=== PATIENT | male | born 1980 | race Caucasian/White ===

== ENCOUNTER 2016-11-20 20:30 | Emergency (ER) | payer MEDICAID, OTHER ==
--- NOTE | 2016-11-20 22:01 | ED Physician Documentation ---
PD HPI ABD PAIN - Stated complaint Stated Complaint: ABD/BACK PX - Chief complaint Chief Complaint: Back Pain - History obtained from History obtained from: Patient - History of Present Illness Timing - onset: Other (36-year-old gentleman with a history of narcotic abuse, maintained on Suboxone presents with 2 complaints. Most acutely he has a recurrent pilonidal cyst that started draining tonight and is painful. There is no associated fever with this. Secondly he has long-standing intermittent abdominal pain, he is chronically constipated only stools a few times a week. Occasionally when he does, but not every time, he developed severe lower abdominal pain right before he has a bowel movement. 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 - Past Surgical History Past Surgical History: No - Present Medications Home Medications: Ambulatory Orders Medication Instructions Recorded Confirmed Buprenorphine HCl/Naloxone HCl 4 mg SL DAILY 11/20/16 11/20/16 [Suboxone 4 mg-1 mg Sl Film] Ciprofloxacin HCl [Cipro] 500 mg PO BID #14 tablet 11/20/16 Dicyclomine HCl 20 mg PO QID PRN #20 tablet 11/20/16 Polyethylene Glycol 3350 [Miralax] 17 gm PO DAILY PRN #1 bottle 11/20/16 - Allergies Allergies/Adverse Reactions: Allergies Allergy/AdvReac Type Severity Reaction Status Date / Time Sulfa (Sulfonamide Allergy Unknown Verified 11/20/16 20:39 Antibiotics) - Social History Does the pt smoke?: Yes Smoking Status: Current every day smoker Does the pt drink ETOH?: No Does the pt have substance abuse?: Yes Substance Use and Type: Prescription Pills - Immunizations Immunizations are current?: Yes - POLST Patient has POLST: No PD ED PE NORMAL - Vitals Vital signs reviewed: Yes - General General: Alert and oriented X 3, No acute distress - Abdomen Abdomen: Normal bowel sounds, Soft, Non tender - Derm Derm: Other (Pointed pilonidal cyst with a small amount of spontaneous drainage on the left side of the top of the gluteal crease.) - Neuro Neuro: Alert and oriented X 3, Normal speech - Psych Psych: Normal mood, Normal affect Results - Vitals Vitals: Vital Signs - 24 hr 11/20/16 20:37 Temperature 36.6 C Heart Rate 97 Respiratory 18 Rate Blood Pressure 161/96 H O2 Saturation 100 Oxygen O2 Source Room air Procedures - Abscess I&D (location) pilonidal Preparation: Alcohol, Marcaine 0.5% Incision: Incised with scalpel, Purulent drainage, Loculations broken Other: Pt tolerated well, Dressing applied, Antibiotic prescribed PD MEDICAL DECISION MAKING - ED course ED course: Pilonidal cyst was incised and drained, it is really too small to necessitate packing at this point. He was referred to a surgeon for definitive treatment of this, also because he probably needs a colonoscopy given his symptoms which might point to inflammatory bowel disease. He does not have an acute abdomen, and his abdominal complaints are not acute. Departure - Departure Disposition: 01 Home, Self Care Clinical Impression: Pilonidal cyst with abscess Condition: Good Record reviewed to determine appropriate education?: Yes Instructions: ED Abdominal Pain Unkn Cause, ED Cyst Pilonidal Infected IandD Follow-Up: STAN MILAN MD [Provider Admit Priv/Credential] - Prescriptions: Ciprofloxacin HCl [Cipro] 500 mg PO BID #14 tablet Dicyclomine HCl 20 mg PO QID PRN #20 tablet PRN Reason: Abdominal Cramps Polyethylene Glycol 3350 [Miralax] 17 gm PO DAILY PRN #1 bottle PRN Reason: Constipation Comments: Follow-up with the surgeon again about definitive treatment for your pilonidal cyst. Return if worse. As discussed regarding her chronic abdominal pain and constipation it seems like this may be due to constipation from the Suboxone in which case the MiraLAX may help, but some of your symptoms might point to something more like Crohn's disease or other inflammatory bowel issue. Follow- up with the surgeon as well for evaluation of this, potential colonoscopy given the weight loss, bloody stools, mucopurulent stools. Your blood pressure was elevated today on check into the emergency department. This does not mean that you have hypertension, it is a common phenomenon to come to the emergency department and have elevated blood pressure. I recommend that she see your primary care physician within the week to have it rechecked when you are feeling better.
[2016-11-20] MEDS: CIPROFLOXACIN 250 MG TABLET PO STA (22:06)
[2016-11-20] MEDS ORDERED: CIPROFLOXACIN 250 MG TABLET PO ONE (22:08)
[2016-11-20 22:09] VITALS: BP 150/90
== END 2016-11-20 22:11 | disposition home or self-care (01) ==
LOC: ED 20:30
DX: L05.01 Pilonidal cyst with abscess (principal); G89.29 Other chronic pain; F17.200 Nicotine dependence, unspecified, uncomplicated
CPT/HCPCS: 10060; 99283; A9270

== ENCOUNTER 2017-03-20 15:30 | Emergency (ER) | payer MEDICAID ==
--- NOTE | 2017-03-20 16:04 | ED Physician Documentation ---
PD HPI ABD PAIN - Stated complaint Stated Complaint: DIZZY/VOMITING/AB PX - Chief complaint Chief Complaint: Abd Pain - History obtained from History obtained from: Patient - History of Present Illness Timing - onset: Other (He has been having ongoing intermittent central abdominal pain associated with constipation and some pus on the outside of his stools for the last 3-5 months that is worse if he eats meat or dairy. He was seen by me in November for similar issue and I recommended follow-up with colonoscopy which he Has not done.) Review of Systems Constitutional: reports: Weight Loss (mild). denies: Fever, Chills Cardiac: denies: Chest pain / pressure, Palpitations Respiratory: denies: Dyspnea, Cough GI: reports: Abdominal Pain, Nausea, Vomiting, Constipation. denies: Diarrhea, Hematemesis, Bloody / black stool PD PAST MEDICAL HISTORY - Past Medical History Psych: Other Musculoskeletal: Chronic back pain Other Past Medical History: addiction to pain killers and meth-clean 2 1/2 yrs. - Past Surgical History Past Surgical History: No - Present Medications Home Medications: Ambulatory Orders Medication Instructions Recorded Confirmed Buprenorphine HCl/Naloxone HCl 4 mg SL DAILY 11/20/16 11/20/16 [Suboxone 4 mg-1 mg Sl Film] Ciprofloxacin HCl [Cipro] 500 mg PO BID #14 tablet 11/20/16 Dicyclomine HCl 20 mg PO QID PRN #20 tablet 11/20/16 Polyethylene Glycol 3350 [Miralax] 17 gm PO DAILY PRN #1 bottle 11/20/16 Dicyclomine HCl 20 mg PO QID PRN #20 tablet 03/20/17 - Allergies Allergies/Adverse Reactions: Allergies Allergy/AdvReac Type Severity Reaction Status Date / Time Sulfa (Sulfonamide Allergy Unknown Verified 11/20/16 20:39 Antibiotics) - Social History Does the pt smoke?: Yes Smoking Status: Current every day smoker Does the pt drink ETOH?: No Does the pt have substance abuse?: Yes Substance Use and Type: Meth, Prescription Pills - Immunizations Immunizations are current?: No - POLST Patient has POLST: No PD ED PE NORMAL - Vitals Vital signs reviewed: Yes - General General: Alert and oriented X 3, No acute distress - Cardiac Cardiac: RRR, No murmur - Respiratory Respiratory: No respiratory distress, Clear bilaterally - Abdomen Abdomen: Normal bowel sounds, Soft, Non tender - Neuro Neuro: Alert and oriented X 3, Normal speech Results - Vitals Vitals: Vital Signs - 24 hr 03/20/17 15:39 Temperature 36.8 C Heart Rate 101 H Respiratory 20 Rate Blood Pressure 136/85 H O2 Saturation 98 Oxygen O2 Source Room air PD MEDICAL DECISION MAKING - ED course ED course: He has basically chronic intermittent abdominal pain that is most consistent with IBD or IBS. Given his failure to follow-up after the last visit I recommended an evaluation today including CT scan and labs. He says that this time he plans to follow-up and refused this evaluation really just needs a work note and some medication. Departure - Departure Disposition: Home, Self Care Clinical Impression: Abdominal pain Qualifiers: Abdominal location: generalized Qualified Code(s): R10.84 - Generalized abdominal pain Condition: Good Record reviewed to determine appropriate education?: Yes Instructions: ED Abdominal Pain Unkn Cause Follow-Up: [facility] [Provider Group] Prescriptions: Dicyclomine HCl 20 mg PO QID PRN #20 tablet PRN Reason: Abdominal Cramps Comments: Follow-up with the [facility] to establish primary care, I recommend they refer you to the surgery office for evaluation for likely colonoscopy, plus or minus upper endoscopy. Return if worse or if new symptoms develop. Your blood pressure was elevated today on check into the emergency department. This does not mean that you have hypertension, it is a common phenomenon to come to the emergency department and have elevated blood pressure. I recommend that you see your primary care physician within the week to have it rechecked when you are feeling better. Forms: Activity restrictions
[2017-03-20 16:12] VITALS: BP 130/86
== END 2017-03-20 16:12 | disposition home or self-care (01) ==
LOC: ED 15:30
DX: R10.84 Generalized abdominal pain (principal); F17.200 Nicotine dependence, unspecified, uncomplicated
CPT/HCPCS: 99283

== ENCOUNTER 2018-11-05 09:28 | Emergency (ER) | payer MEDICAID ==
--- NOTE | 2018-11-05 09:56 | XRAY Report ---
Reason: chest pain Procedure Date: 11/05/2018 Accession Number: [id number] / [id number] Procedure: XR - Chest 1 View X-Ray CPT Code: 90202 FULL RESULT: EXAM: CHEST RADIOGRAPHY EXAM DATE: 11/05/2018 09:43 AM. CLINICAL HISTORY: Chest pain. COMPARISON: XR CHEST PA AND LAT 10/21/2006 5:55 PM. TECHNIQUE: 1 view. FINDINGS: Lungs/Pleura: No focal opacities evident. No pleural effusion. No pneumothorax. Mediastinum: Within exam limitations, the cardiomediastinal contour is normal. Other: None. IMPRESSION: No acute cardiopulmonary abnormality. RADIA
[2018-11-05 10:04] LABS: BASOPHILS % (AUTO) 0.6 %; EOSINOPHILS # (AUTO) 0.2 10^3/uL (0.0-0.7); EOSINOPHILS % (AUTO) 2.2 %; HGB - HEMOGLOBIN 15.3 g/dL (14.0-18.0); LYMPHOCYTES # (AUTO) 1.7 10^3/uL (1.5-3.5); LYMPHOCYTES % (AUTO) 24.3 %; MEAN CORPUSCULAR HEMOGLOBIN 30.4 pg (27.0-31.0); MEAN CORPUSCULAR HGB CONC 32.8 g/dL (32.0-36.0); MEAN CORPUSCULAR VOLUME 92.7 fL (80.0-94.0); MEAN PLATELET VOLUME 9.5 fL (7.4-11.4); MONOCYTES # (AUTO) 0.6 10^3/uL (0.0-1.0); MONOCYTES % (AUTO) 9.1 %; NEUTROPHILS # (AUTO) 4.3 10^3/uL (1.5-6.6); NEUTROPHILS % (AUTO) 63.5 %; PLT - PLATELET COUNT 233 10^3/uL (130-450); RED BLOOD COUNT 5.04 10^6/uL (4.70-6.10); RED CELL DISTRIBUTION WIDTH 11.9 % (12.0-15.0); WHITE BLOOD COUNT 6.8 x10^3/uL (4.8-10.8)
[2018-11-05 10:24] LABS: ALBUMIN 4.1 g/dL (3.2-5.5); ALBUMIN/GLOBULIN RATIO 1.1 (1.0-2.2); BILIRUBIN,TOTAL 0.7 mg/dL (0.2-1.0); CALCIUM 9.3 mg/dL (8.5-10.3); CREATININE 0.9 mg/dL (0.6-1.2); TOTAL PROTEIN 7.7 g/dL (6.7-8.2)
[2018-11-05 11:51] VITALS: BP 161/99
--- NOTE | 2018-11-05 12:35 | ED Physician Documentation ---
PD HPI CHEST PAIN - Stated complaint Stated Complaint: CP - Chief complaint Chief Complaint: Cardiac - History obtained from History obtained from: Patient - History of Present Illness Timing - onset: Today (It was not associated with shortness of breath.38-year-old gentleman developed sharp nonradiating right-sided anterior chest pain today on waking up around 9 AM. He has no history of heart problems. He does have a history of smoking and remote drug use, nothing recent. Pain is much better now, not quite gone but almost gone. No recent travel, calf pain, or pedal edema.) Review of Systems Constitutional: denies: Fever, Chills Cardiac: denies: Palpitations, Pedal edema, Calf pain Respiratory: denies: Dyspnea, Cough GI: denies: Abdominal Pain PD PAST MEDICAL HISTORY - Past Medical History Psych: Other Musculoskeletal: Chronic back pain - Past Surgical History Past Surgical History: No - Present Medications Home Medications: Ambulatory Orders Medication Instructions Recorded Confirmed Buprenorphine HCl/Naloxone HCl 4 mg SL DAILY 11/20/16 11/20/16 [Suboxone 4 mg-1 mg Sl Film] Ciprofloxacin HCl [Cipro] 500 mg PO BID #14 tablet 11/20/16 Dicyclomine HCl 20 mg PO QID PRN #20 tablet 11/20/16 Polyethylene Glycol 3350 [Miralax] 17 gm PO DAILY PRN #1 bottle 11/20/16 Dicyclomine HCl 20 mg PO QID PRN #20 tablet 03/20/17 - Allergies Allergies/Adverse Reactions: Allergies Allergy/AdvReac Type Severity Reaction Status Date / Time Sulfa (Sulfonamide Allergy Unknown Verified 11/05/18 09:34 Antibiotics) - Social History Does the pt smoke?: Yes Smoking Status: Current every day smoker Does the pt drink ETOH?: No Does the pt have substance abuse?: Yes - Immunizations Immunizations are current?: No - POLST Patient has POLST: No PD ED PE NORMAL - Vitals Vital signs reviewed: Yes - General General: Alert and oriented X 3, No acute distress - Neck Neck: Supple, no meningeal sign, No bony TTP - Cardiac Cardiac: RRR, No murmur - Respiratory Respiratory: No respiratory distress, Clear bilaterally - Abdomen Abdomen: Non tender - Back Back: No CVA TTP, No spinal TTP - Derm Derm: Normal color, Warm and dry - Extremities Extremities: No edema, No calf tenderness / cord - Neuro Neuro: Alert and oriented X 3, Normal speech - Psych Psych: Normal mood, Normal affect Results - Vitals Vitals: Vital Signs - 24 hr 11/05/18 11/05/18 09:34 11:50 Temperature 36.6 C 36.6 C Heart Rate 99 89 Respiratory 17 17 Rate Blood Pressure 168/87 H 161/99 H O2 Saturation 100 99 Oxygen O2 Source Room air - EKG (time done) 1000 Rate: Rate (enter#) (88) Rhythm: NSR [place]: Normal Intervals: Normal [place] QRS: Normal Ischemia: ST elevation c/w repol. No: ST elevation c/w ischemia, ST depression, T wave inversion Computer interpretation: Agree with computer - Labs Labs: Laboratory Tests 11/05/18 11/05/18 11/05/18 09:50 09:50 09:50 WBC 6.8 RBC 5.04 Hgb 15.3 Hct 46.7 MCV 92.7 MCH 30.4 MCHC 32.8 RDW 11.9 L Plt Count 233 MPV 9.5 Neut # (Auto) 4.3 Lymph # (Auto) 1.7 [place] # (Auto) 0.6 Eos # (Auto) 0.2 Baso # (Auto) 0.0 Absolute Nucleated RBC 0.00 Nucleated RBC % 0.0 Sodium 139 Potassium 4.0 Chloride 103 Carbon Dioxide 29 Anion Gap 7.0 BUN 16 Creatinine 0.9 Estimated GFR (MDRD) 94 Glucose 110 H Calcium 9.3 Total Bilirubin 0.7 AST 24 ALT 22 Alkaline Phosphatase 48 Troponin I High Sens 2.4 Total Protein 7.7 Albumin 4.1 Globulin 3.6 Albumin/Globulin Ratio 1.1 Lipase 31 - Rads (name of study) 1v chest Radiology: EMP read contemporaneously (NAD) PD MEDICAL DECISION MAKING - ED course ED course: PE is considered but given the lack of shortness of breath, resolved chest pain, no risk factors or travel, this is considered exceedingly unlikely. Heart score is 1 and high-sensitivity troponin is negative. Departure - Departure Disposition: 01 Home, Self Care Clinical Impression: Chest pain Qualifiers: Chest pain type: precordial pain Qualified Code(s): R07.2 - Precordial pain Condition: Good Record reviewed to determine appropriate education?: Yes Instructions: ED Chest Pain NonCardiac Comments: Diagnostics today are negative. Return for new or worsening symptoms, follow-up with your doctor, next available appointment. Your blood pressure was elevated today on check into the emergency department. This does not mean that you have hypertension, it is a common phenomenon to come to the emergency department and have elevated blood pressure. I recommend that you see your primary care physician within the week to have it rechecked when you are feeling better.
== END 2018-11-05 12:45 | disposition home or self-care (01) ==
LOC: ED 09:28
DX: R07.2 Precordial pain (principal); R03.0 Elevated blood-pressure reading, without diagnosis of hypertension; F17.200 Nicotine dependence, unspecified, uncomplicated
CPT/HCPCS: 36415; 71045; 80053; 83690; 84484; 85025; 93005; 99283; 99284

== ENCOUNTER 2018-12-22 11:05 | Emergency (ER) | payer MEDICAID ==
--- NOTE | 2018-12-22 12:02 | ED Physician Documentation ---
PD HPI HEENT - Stated complaint Stated Complaint: TOOTH PX - Chief complaint Chief Complaint: Heent - History obtained from History obtained from: Patient - History of Present Illness Timing - onset: How many days ago (2-3) Timing - duration: Days (2-3) Timing - details: Gradual onset, Still present Location: Tooth (He had onset of pain and swelling around the left lower canine tooth that has significant prior dental caries. He has an appoint with [facility] to have the left lower teeth extracted in January. He had had the right lower teeth extracted a few weeks ago. He developed the swelling and pain and some drainage in the last few days. He feels generally ill with some nausea and aches.) Worsens: Swalllowing Associated symptoms: Fever (subjective last night), Facial swelling (localized around the left lower tooth). No: Swollen nodes Recently seen: Other ([facility] few weeks ago with right lower teeth extracted with good healing.) Review of Systems Constitutional: reports: Chills, Myalgias Nose: denies: Congestion Throat: reports: Dental pain / toothache. denies: Sore throat Respiratory: denies: Cough GI: reports: Nausea. denies: Vomiting, Diarrhea Skin: denies: Rash Neurologic: denies: Altered mental status, Headache PD PAST MEDICAL HISTORY - Past Medical History Cardiovascular: Hypertension Psych: Other Musculoskeletal: Chronic back pain - Past Surgical History Past Surgical History: No - Present Medications Home Medications: Ambulatory Orders Medication Instructions Recorded Confirmed Buprenorphine HCl/Naloxone HCl 4 mg SL DAILY 11/20/16 11/20/16 [Suboxone 4 mg-1 mg Sl Film] Ciprofloxacin HCl [Cipro] 500 mg PO BID #14 tablet 11/20/16 Dicyclomine HCl 20 mg PO QID PRN #20 tablet 11/20/16 Polyethylene Glycol 3350 [Miralax] 17 gm PO DAILY PRN #1 bottle 11/20/16 Dicyclomine HCl 20 mg PO QID PRN #20 tablet 03/20/17 Clindamycin HCl [Clindamycin 300MG 300 mg PO TID #21 capsule 12/22/18 CAP] Ibuprofen [Motrin] 600 mg PO TID PRN #30 tab 12/22/18 Ondansetron Odt [Zofran] 4 mg TL Q6H PRN #10 tablet 12/22/18 - Allergies Allergies/Adverse Reactions: Allergies Allergy/AdvReac Type Severity Reaction Status Date / Time Sulfa (Sulfonamide Allergy Unknown Verified 11/05/18 09:34 Antibiotics) - Social History Does the pt smoke?: Yes Smoking Status: Current every day smoker Does the pt drink ETOH?: Yes Does the pt have substance abuse?: Yes - Immunizations Immunizations are current?: No - POLST Patient has POLST: No PD ED PE NORMAL - Vitals Vital signs reviewed: Yes - General General: Alert and oriented X 3, No acute distress, Well developed/nourished - HEENT HEENT: No: Dentition benign (Well-healing gums in the right lower gingiva. The left lower have a few still remaining teeth with significant cavities down to the gum level. The left lower canine tooth has some swelling around the gum without any localized fluctuance. The upper teeth have implants which are nontender.) - Neck Neck: Supple, no meningeal sign, No adenopathy, No JVD - Cardiac Cardiac: RRR, No murmur - Respiratory Respiratory: Clear bilaterally - Abdomen Abdomen: Soft, Non tender - Derm Derm: Normal color, Warm and dry, No rash Results - Vitals Vitals: Vital Signs - 24 hr 12/22/18 12/22/18 11:13 12:39 Temperature 37 C 36.8 C Heart Rate 98 103 H Respiratory 18 18 Rate Blood Pressure 146/81 H 128/84 H O2 Saturation 100 98 Oxygen O2 Source Room air PD MEDICAL DECISION MAKING - ED course Complexity details: considered differential, d/w patient Departure - Departure Disposition: 01 Home, Self Care Clinical Impression: Dental abscess Condition: Stable Record reviewed to determine appropriate education?: Yes Instructions: ED Abscess Dental Prescriptions: Clindamycin HCl [Clindamycin 300MG CAP] 300 mg PO TID #21 capsule Ibuprofen [Motrin] 600 mg PO TID PRN #30 tab PRN Reason: Pain Ondansetron Odt [Zofran] 4 mg TL Q6H PRN #10 tablet PRN Reason: Nausea / Vomiting Comments: Stay well-hydrated. Ondansetron if needed for nausea. Ibuprofen 3 times a day for inflammation and pain. Add Tylenol if needed every 4-6 hours. Clindamycin antibiotic as directed for a week. Follow-up with [facility] dental clinic if not improved well over the next few days. Otherwise follow-up with them as planned for the subsequent tooth extractions. Discharge Date/Time: 12/22/18 12:40
[2018-12-22] MEDS ORDERED: ONDANSETRON ODT 4 MG TABLET TL STA (12:21)
[2018-12-22] MEDS ORDERED: IBUPROFEN 600 MG TABLET PO STA (12:21)
[2018-12-22] MEDS ORDERED: CLINDAMYCIN 150 MG CAPSULE PO STA (12:21)
[2018-12-22 12:40] VITALS: BP 128/84
== END 2018-12-22 12:40 | disposition home or self-care (01) ==
LOC: ED 11:05
DX: K04.7 Periapical abscess without sinus (principal); K02.9 Dental caries, unspecified; Z98.818 Other dental procedure status; I10 Essential (primary) hypertension; F17.200 Nicotine dependence, unspecified, uncomplicated
CPT/HCPCS: 99283; 99284; A9270; Q0162

== ENCOUNTER 2019-01-15 17:49 | Emergency (ER) | payer MEDICAID ==
--- NOTE | 2019-01-15 18:20 | ED Physician Documentation ---
PD HPI ALTERED MENTAL STATUS - Stated complaint Stated Complaint: CONFUSION POST TOOTH EXTRACTION - Chief complaint Chief Complaint: Neuro - History obtained from History obtained from: Patient - History of Present Illness Timing - onset: Today (38-year-old gentleman with history of some drug problems. He is on Suboxone, but interestingly initially when asked him if he still on Suboxone he says now, then subsequently says yes but vacillates on the dose. Anyway 2 days ago he had multiple teeth removed but was recovering well. Today around 4:00 he started to feel "drunk." He was having some trouble getting words out. It just kind of feeling out of body. There is no weakness, numbness, tingling of the extremities or face. No headache. He denies any drug use except for "1 puff" of marijuana at noon.) Review of Systems Constitutional: denies: Fever, Chills Nose: denies: Rhinorrhea / runny nose, Congestion Throat: denies: Sore throat Cardiac: denies: Chest pain / pressure, Palpitations PD PAST MEDICAL HISTORY - Past Medical History Cardiovascular: Hypertension Psych: Other Musculoskeletal: Chronic back pain - Past Surgical History Past Surgical History: No - Present Medications Home Medications: Ambulatory Orders Medication Instructions Recorded Confirmed Buprenorphine HCl/Naloxone HCl 4 mg SL DAILY 11/20/16 11/20/16 [Suboxone 4 mg-1 mg Sl Film] Ciprofloxacin HCl [Cipro] 500 mg PO BID #14 tablet 11/20/16 Dicyclomine HCl 20 mg PO QID PRN #20 tablet 11/20/16 Polyethylene Glycol 3350 [Miralax] 17 gm PO DAILY PRN #1 bottle 11/20/16 Dicyclomine HCl 20 mg PO QID PRN #20 tablet 03/20/17 Clindamycin HCl [Clindamycin 300MG 300 mg PO TID #21 capsule 12/22/18 CAP] Ibuprofen [Motrin] 600 mg PO TID PRN #30 tab 12/22/18 Ondansetron Odt [Zofran] 4 mg TL Q6H PRN #10 tablet 12/22/18 - Allergies Allergies/Adverse Reactions: Allergies Allergy/AdvReac Type Severity Reaction Status Date / Time Sulfa (Sulfonamide Allergy Unknown Verified 01/15/19 18:02 Antibiotics) - Social History Does the pt smoke?: Yes Smoking Status: Current every day smoker Does the pt drink ETOH?: Yes Does the pt have substance abuse?: Yes - Immunizations Immunizations are current?: No - POLST Patient has POLST: No PD ED PE NORMAL - Vitals Vital signs reviewed: Yes - General General: Alert and oriented X 3, No acute distress, Other (Slightly confused gentleman with small pupils but in no distress, he is alert and oriented though. Very slightly slurred speech. Symmetric face.) - HEENT HEENT: EOMI - Neck Neck: Supple, no meningeal sign, No bony TTP - Cardiac Cardiac: RRR, No murmur - Respiratory Respiratory: No respiratory distress, Clear bilaterally - Abdomen Abdomen: Non tender - Back Back: No CVA TTP, No spinal TTP - Derm Derm: Normal color, Warm and dry - Extremities Extremities: No deformity, No tenderness to palpate, No edema, No calf tenderness / cord - Neuro Neuro: Alert and oriented X 3, printing plate setter 2-12 intact, No motor deficit, No sensory deficit, Normal speech, Other (NIH stroke scale equals 0, may be soft 1 for very slightly slurred speech.) Results - Vitals Vitals: Vital Signs - 24 hr 01/15/19 01/15/19 01/15/19 18:02 19:09 19:18 Temperature 36.3 C L Heart Rate 83 Respiratory 18 16 16 Rate Blood Pressure 167/94 H O2 Saturation 97 01/15/19 20:15 Temperature 36.6 C Heart Rate 88 Respiratory 16 Rate Blood Pressure 147/97 H O2 Saturation 100 Oxygen O2 Source Room air - Labs Labs: Laboratory Tests 01/15/19 01/15/19 01/15/19 18:25 18:25 20:05 WBC 9.5 RBC 4.79 Hgb 14.6 Hct 44.3 MCV 92.5 MCH 30.5 MCHC 33.0 RDW 11.8 L Plt Count 226 MPV 9.7 Neut # (Auto) 7.3 H Lymph # (Auto) 1.3 L [place] # (Auto) 0.8 Eos # (Auto) 0.1 Baso # (Auto) 0.0 Absolute Nucleated RBC 0.00 Nucleated RBC % 0.0 Sodium 139 Potassium 4.0 Chloride 103 Carbon Dioxide 28 Anion Gap 8.0 BUN 18 Creatinine 1.0 Estimated GFR (MDRD) 84 L Glucose 116 H Calcium 9.1 Total Bilirubin 0.7 AST 22 ALT 18 Alkaline Phosphatase 60 Total Protein 8.2 Albumin 4.2 Globulin 4.0 Albumin/Globulin Ratio 1.1 Lipase 29 Urine Opiates Screen NEGATIVE Ur Oxycodone Screen NEGATIVE Urine Methadone Screen NEGATIVE Ur Propoxyphene Screen NEGATIVE Ur Barbiturates Screen NEGATIVE Ur Tricyclics Screen NEGATIVE Ur Phencyclidine Scrn NEGATIVE Ur Amphetamine Screen POSITIVE H U Methamphetamines Scrn POSITIVE H U Benzodiazepines Scrn NEGATIVE Urine Cocaine Screen NEGATIVE U Cannabinoids Screen POSITIVE H Ethyl Alcohol < 5.0 PD MEDICAL DECISION MAKING - ED course ED course: 38-year-old gentleman with mild confusion today that is initially inexplicable. He says he has not used methamphetamines in 8 months, the drug screen would suggest otherwise. His slurred speech improved significantly during his evaluation. Departure - Departure Disposition: 01 Home, Self Care Clinical Impression: Altered mental status Qualifiers: Altered mental status type: delirium Qualified Code(s): R41.0 - Disorientation, unspecified Condition: Good Record reviewed to determine appropriate education?: Yes Instructions: ED Confusion, ED Altered Loc Comments: Stay away from drugs and alcohol, all of them. Return for new or worsening symptoms. Do not drink or drive tonight. Your blood pressure was elevated today on check into the emergency department. This does not mean that you have hypertension, it is a common phenomenon to come to the emergency department and have elevated blood pressure. I recommend that you see your primary care physician within the week to have it rechecked when you are feeling better.
[2019-01-15 18:29] LABS: BASOPHILS % (AUTO) 0.3 %; EOSINOPHILS # (AUTO) 0.1 10^3/uL (0.0-0.7); EOSINOPHILS % (AUTO) 0.8 %; HGB - HEMOGLOBIN 14.6 g/dL (14.0-18.0); LYMPHOCYTES # (AUTO) 1.3 10^3/uL (1.5-3.5); LYMPHOCYTES % (AUTO) 13.8 %; MEAN CORPUSCULAR HEMOGLOBIN 30.5 pg (27.0-31.0); MEAN CORPUSCULAR VOLUME 92.5 fL (80.0-94.0); MEAN PLATELET VOLUME 9.7 fL (7.4-11.4); MONOCYTES # (AUTO) 0.8 10^3/uL (0.0-1.0); MONOCYTES % (AUTO) 8.2 %; NEUTROPHILS # (AUTO) 7.3 10^3/uL (1.5-6.6); NEUTROPHILS % (AUTO) 76.7 %; PLT - PLATELET COUNT 226 10^3/uL (130-450); RED BLOOD COUNT 4.79 10^6/uL (4.70-6.10); RED CELL DISTRIBUTION WIDTH 11.8 % (12.0-15.0); WHITE BLOOD COUNT 9.5 x10^3/uL (4.8-10.8)
[2019-01-15 18:46] LABS: ALBUMIN 4.2 g/dL (3.2-5.5); ALBUMIN/GLOBULIN RATIO 1.1 (1.0-2.2); ALKALINE PHOSPHATASE 60 IU/L (42-121); ALT ALANINE AMINOTRANSFERASE 18 IU/L (10-60); AST ASPARTATE AMINOTRANSFERASE 22 IU/L (10-42); BILIRUBIN,TOTAL 0.7 mg/dL (0.2-1.0); BUN - BLOOD UREA NITROGEN 18 mg/dL (6-20); CALCIUM 9.1 mg/dL (8.5-10.3); CARBON DIOXIDE - CO2 28 mmol/L (21-32); CHLORIDE 103 mmol/L (101-111); GFR - MDRD 84 (>89); GLUCOSE 116 mg/dL (70-100); LIPASE 29 U/L (22-51); SODIUM 139 mmol/L (135-145); TOTAL PROTEIN 8.2 g/dL (6.7-8.2)
--- NOTE | 2019-01-15 19:12 | CT Report ---
Reason: altered Procedure Date: 01/15/2019 Accession Number: [id number] / [id number] Procedure: CT - HEAD WO CPT Code: Final Report FULL RESULT: EXAM: CT HEAD EXAM DATE: 01/15/2019 06:34 PM. CLINICAL HISTORY: Altered metal status, confusion. COMPARISON: None. TECHNIQUE: Multiaxial CT images were obtained from the foramen magnum to the vertex. Reformats: Sagittal and coronal. IV contrast: None. In accordance with CT protocol optimization, one or more of the following dose reduction techniques were utilized for this exam: automated exposure control, adjustment of mA and/or KV based on patient size, or use of iterative reconstructive technique. FINDINGS: PARENCHYMA: No acute hemorrhage, transcortical infarction or mass. Normal redmond-white differentiation. EXTRA-AXIAL SPACES: No extra-axial fluid collections. No midline shift. VENTRICLES/SULCI: Normal for patient age. VASCULAR STRUCTURES: The visible vascular structures are unremarkable. SINUSES: The visible paranasal sinuses and mastoid air cells are unremarkable. ORBITS: Unremarkable. BONES: No displaced acute calvarial fracture. OTHER: None. IMPRESSION: No acute intracranial findings. RADIA
[2019-01-15 20:07] LABS: MUDS CUTOFF CONCENTRATIONS CUTOFF CONC BELOW:
[2019-01-15 20:16] VITALS: BP 147/97
[2019-01-15 20:20] LABS: AMPHETAMINE SCREEN,URINE POSITIVE (NEGATIVE); BENZODIAZEPINES SCREEN, URINE NEGATIVE (NEGATIVE); COCAINE SCREEN URINE NEGATIVE (NEGATIVE); METHADONE SCREEN, URINE NEGATIVE (NEGATIVE); METHAMPHETAMINES SCREEN, URINE POSITIVE (NEGATIVE); OPIATE SCREEN, URINE NEGATIVE (NEGATIVE); OXYCODONE SCREEN, URINE NEGATIVE (NEGATIVE); PROPOXYPHENE SCREEN, URINE NEGATIVE (NEGATIVE); TRICYCLIC ANTIDEPRESSANT,URINE NEGATIVE (NEGATIVE)
== END 2019-01-15 21:09 | disposition home or self-care (01) ==
LOC: ED 17:49
DX: R41.0 Disorientation, unspecified (principal); R47.81 Slurred speech; R78.4 Finding of other drugs of addictive potential in blood; Z98.818 Other dental procedure status; I10 Essential (primary) hypertension; F17.200 Nicotine dependence, unspecified, uncomplicated
CPT/HCPCS: 36415; 70450; 80053; 80306; 80320; 83690; 85025; 99283; 99284

== ENCOUNTER 2020-01-13 18:01 | Emergency (ER) | payer MEDICAID ==
[2020-01-13 18:13] VITALS: BP 168/88
--- NOTE | 2020-01-13 18:29 | ED Physician Documentation ---
PD HPI WOUND RECHECK - Stated complaint Stated Complaint: MALE - Chief complaint Chief Complaint: Wound - Histroy obtained from History obtained from: Patient - Additional information Additional information: He has had a new girlfriend for the last few months and she is "rambunctious, over the last couple of days has had a painful rash in the right side of the groin associated with myalgias and fatigue. Review of Systems Constitutional: reports: Myalgias. denies: Fever, Chills PD PAST MEDICAL HISTORY - Past Medical History Cardiovascular: Hypertension Respiratory: None Neuro: None Endocrine/Autoimmune: None GI: None : None HEENT: None Psych: Other Musculoskeletal: Chronic back pain Derm: None - Past Surgical History Past Surgical History: No - Present Medications Home Medications: Ambulatory Orders Medication Instructions Recorded Confirmed Valacyclovir HCl [Valtrex] 1,000 mg PO BID #20 tablet 01/13/20 - Allergies Allergies/Adverse Reactions: Allergies Allergy/AdvReac Type Severity Reaction Status Date / Time Sulfa (Sulfonamide Allergy Unknown Verified 01/13/20 18:13 Antibiotics) - Social History Does the pt smoke?: Yes Smoking Status: Current every day smoker Does the pt drink ETOH?: Yes Does the pt have substance abuse?: Yes Substance Use and Type: Meth, Heroin - Immunizations Immunizations are current?: No - POLST Patient has POLST: No PD ED PE NORMAL - Vitals Vital signs reviewed: Yes - General General: Alert and oriented X 3 - Male Male : Other (Vesicles in the right side of the groin with shoddy adenopathy consistent with genital herpes) - Neuro Neuro: Alert and oriented X 3, Normal speech Results - Vitals Vitals: Vital Signs - 24 hr 01/13/20 18:08 Temperature 36.7 C Heart Rate 97 Respiratory 17 Rate Blood Pressure 168/88 H O2 Saturation 98 Oxygen O2 Source Room air PD MEDICAL DECISION MAKING - ED course ED course: This gentleman has what looks like an initial outbreak of genital herpes, PCR swab was sent and he is started on Valtrex. Departure - Departure Disposition: 01 Home, Self Care Clinical Impression: Genital herpes Qualifiers: Herpes simplex infection site: other site of male genital organs Qualified Code(s): A60.02 - Herpesviral infection of other male genital organs Condition: Good Record reviewed to determine appropriate education?: Yes Instructions: ED Herpes Simplex Virus Type 2 Prescriptions: Valacyclovir HCl [Valtrex] 1,000 mg PO BID #20 tablet Comments: As discussed, the lesions in your groin appear to look like genital herpes. We are running a PCR test to prove. The fastest way to get test results is to go to the hospital website at [email or web address], click on the my [employer] tab and sign up for the patient portal. Also follow-up with your doctor in about a week to discuss results 2.
== END 2020-01-13 18:31 | disposition home or self-care (01) ==
LOC: ED 18:01
DX: A60.02 Herpesviral infection of other male genital organs (principal); I10 Essential (primary) hypertension; F17.200 Nicotine dependence, unspecified, uncomplicated
CPT/HCPCS: 87529; 99282; 99283

== ENCOUNTER 2020-06-24 13:23 | Emergency (ER) | payer MEDICAID ==
[2020-06-24] MEDS ORDERED: SODIUM CHLORIDE 0.9% 1,000 ML IV STA (13:37)
[2020-06-24] MEDS ORDERED: IOPAMIDOL-300 100 ML VIAL ONE (13:41)
--- NOTE | 2020-06-24 13:41 | ED Physician Documentation ---
PD HPI ABD PAIN - Stated complaint Stated Complaint: MALE - Chief complaint Chief Complaint: Abd Pain - History obtained from History obtained from: Patient - Additional information Additional information: 40-year-old gentleman with inhaled methamphetamine and heroin abuse, never injected presents with gross hematuria starting yesterday with clots. He noticed it when just simply urinating and it is painless without dysuria, frequency. He has mild central abdominal discomfort without flank pain. He is never had this before. The day prior to this starting he felt off and had to leave work early. Kind of a nonspecific discoordination syndrome that since resolved. He has a history of HSV-2, hypertension, chronic back pain and the above-mentioned drug abuse. Review of the chart shows previously negative renal functions, he is never had a urinalysis done in our system. He denies getting so high on drugs that he would have passed out to have rhabdomyolysis, nor does he describe recent increase in strenuous exercise. Review of Systems Ten Systems: 10 systems reviewed and negative Constitutional: reports: Fatigue. denies: Fever, Chills Cardiac: denies: Chest pain / pressure, Palpitations Respiratory: denies: Dyspnea, Cough, Wheezing GI: reports: Abdominal Pain. denies: Nausea, Vomiting, Constipation, Diarrhea : reports: Hematuria. denies: Dysuria, Frequency, Hesitancy, Unable to Void, Incontinent, Discharge PD PAST MEDICAL HISTORY - Past Medical History Cardiovascular: Hypertension Respiratory: None Neuro: None Endocrine/Autoimmune: None GI: None : None HEENT: None Psych: Other Musculoskeletal: Chronic back pain Derm: None - Past Surgical History Past Surgical History: No - Present Medications Home Medications: Ambulatory Orders Medication Instructions Recorded Confirmed No Known Home Medications 06/24/20 06/24/20 - Allergies Allergies/Adverse Reactions: Allergies Allergy/AdvReac Type Severity Reaction Status Date / Time Sulfa (Sulfonamide Allergy Unknown Verified 06/24/20 13:26 Antibiotics) - Social History Does the pt smoke?: Yes Smoking Status: Current every day smoker Does the pt drink ETOH?: Yes Does the pt have substance abuse?: Yes - Immunizations Immunizations are current?: No - POLST Patient has POLST: No PD ED PE NORMAL - Vitals Vital signs reviewed: Yes - General General: Alert and oriented X 3, No acute distress - HEENT HEENT: PERRL, EOMI - Neck Neck: Supple, no meningeal sign, No bony TTP - Cardiac Cardiac: RRR, No murmur - Respiratory Respiratory: No respiratory distress, Clear bilaterally - Abdomen Abdomen: Normal bowel sounds, Soft, Non tender - Back Back: No CVA TTP, No spinal TTP - Derm Derm: Normal color, Warm and dry - Extremities Extremities: No edema, No calf tenderness / cord - Neuro Neuro: Alert and oriented X 3, Normal speech Results - Vitals Vitals: Vital Signs - 24 hr 06/24/20 06/24/20 13:26 15:28 Temperature 36.6 C 36.7 C Heart Rate 104 H 87 Respiratory 18 18 Rate Blood Pressure 155/99 H 156/107 H O2 Saturation 100 99 Oxygen O2 Source Room air - Labs Labs: Laboratory Tests 06/24/20 06/24/20 06/24/20 13:35 13:37 13:37 WBC 8.1 RBC 5.09 Hgb 15.9 Hct 47.8 MCV 93.9 MCH 31.2 H MCHC 33.3 RDW 11.9 L Plt Count 212 MPV 9.7 Neut # (Auto) 5.5 Lymph # (Auto) 1.9 [place] # (Auto) 0.7 Eos # (Auto) 0.1 Baso # (Auto) 0.0 Absolute Nucleated RBC 0.00 Nucleated RBC % 0.0 Sodium 139 Potassium 3.9 Chloride 103 Carbon Dioxide 28 Anion Gap 8.0 BUN 15 Creatinine 1.0 Estimated GFR (MDRD) 83 L Glucose 112 H Calcium 9.4 Total Bilirubin 0.9 AST 24 ALT 20 Alkaline Phosphatase 44 Total Creatine Kinase 172 Total Protein 7.8 Albumin 4.6 Globulin 3.2 Albumin/Globulin Ratio 1.4 Urine Color BROWN Urine Clarity CLOUDY Urine pH 6.0 Ur Specific Jerome 1.025 Urine Protein 30 H Urine Glucose (UA) NEGATIVE Urine Ketones NEGATIVE Urine Occult Blood LARGE H Urine Nitrite NEGATIVE Urine Bilirubin NEGATIVE Urine Urobilinogen 0.2 (NORMAL) Ur Leukocyte Esterase NEGATIVE Urine RBC TNTC H Urine WBC 0-3 Ur Squamous Epith Cells RARE Squamous Urine Bacteria Rare Ur Microscopic Review INDICATED Urine Culture Comments NOT INDICATED PD MEDICAL DECISION MAKING - ED course ED course: 40-year-old presents with gross hematuria. No evidence of rhabdomyolysis. No renal mass save a cyst. No obvious bladder mass. Discussed need for follow-up for cystoscopy. Departure - Departure Disposition: 01 Home, Self Care Clinical Impression: Gross hematuria Condition: Good Record reviewed to determine appropriate education?: Yes Instructions: ED Hematuria Comments: Thankfully there is no evidence of serious cause of the blood in your urine. No evidence of rhabdomyolysis, anemia, or kidney mass other than a cyst which is a benign phenomenon. That said you definitely need to follow-up with the urologist, for consideration of cystoscopy, a camera to look in your bladder and make sure there are no bladder masses which can be missed by the CT. The closest urologist is Dr. Geovany Vanessa in [place], the phone number is [phone]. CT Result: No urolithiasis. No evidence of urinary obstruction. Large right renal cysts with simple appearance. Elsewhere, no acute abnormality. Normal appearance of the appendix. Discharge Date/Time: 06/24/20 16:05
[2020-06-24 13:47] LABS: BASOPHILS % (AUTO) 0.5 %; EOSINOPHILS # (AUTO) 0.1 10^3/uL (0.0-0.7); EOSINOPHILS % (AUTO) 1.1 %; HCT - HEMATOCRIT 47.8 % (42.0-52.0); HGB - HEMOGLOBIN 15.9 g/dL (14.0-18.0); LYMPHOCYTES # (AUTO) 1.9 10^3/uL (1.5-3.5); LYMPHOCYTES % (AUTO) 23.1 %; MEAN CORPUSCULAR HEMOGLOBIN 31.2 pg (27.0-31.0); MEAN CORPUSCULAR HGB CONC 33.3 g/dL (32.0-36.0); MEAN CORPUSCULAR VOLUME 93.9 fL (80.0-94.0); MEAN PLATELET VOLUME 9.7 fL (7.4-11.4); MONOCYTES # (AUTO) 0.7 10^3/uL (0.0-1.0); MONOCYTES % (AUTO) 8.1 %; NEUTROPHILS # (AUTO) 5.5 10^3/uL (1.5-6.6); PLT - PLATELET COUNT 212 10^3/uL (130-450); RED BLOOD COUNT 5.09 10^6/uL (4.70-6.10); RED CELL DISTRIBUTION WIDTH 11.9 % (12.0-15.0); WHITE BLOOD COUNT 8.1 x10^3/uL (4.8-10.8)
[2020-06-24 13:56] LABS: BILIRUBIN,URINE NEGATIVE (NEGATIVE); GLUCOSE, URINE (UA) NEGATIVE (NEGATIVE); KETONES,URINE (UA) NEGATIVE (NEGATIVE); LEUKOCYTE ESTERASE, URINE NEGATIVE (NEGATIVE); NITRITE,URINE NEGATIVE (NEGATIVE); OCCULT BLOOD,URINE LARGE (NEGATIVE); PROTEIN,URINE 30 mg/dL (NEGATIVE); UROBILINOGEN,URINE 0.2 (NORMAL) E.U./dL (NORMAL)
[2020-06-24 14:01] LABS: BACTERIA,URINE Rare /HPF (None Seen); CLARITY,URINE CLOUDY (CLEAR); RBC,URINE TNTC /HPF (0-5); SQUAMOUS EPITHELIAL CELL,UR RARE Squamous (<= Few); WBC,URINE 0-3 /HPF (0-3)
[2020-06-24 14:02] LABS: ALBUMIN 4.6 g/dL (3.2-5.5); ALBUMIN/GLOBULIN RATIO 1.4 (1.0-2.2); BILIRUBIN,TOTAL 0.9 mg/dL (0.2-1.0); CALCIUM 9.4 mg/dL (8.5-10.3); POTASSIUM 3.9 mmol/L (3.5-5.0); TOTAL PROTEIN 7.8 g/dL (6.7-8.2)
[2020-06-24] MEDS ORDERED: IOPAMIDOL-300 100 ML VIAL IVP ONE (15:11)
[2020-06-24 15:34] VITALS: BP 156/107
--- NOTE | 2020-06-24 15:45 | CT Report ---
PROCEDURE: IVP INDICATIONS: gross hematuria CONTRAST: IV CONTRAST: Isovue 300 ml: 140 PO CONTRAST: *NO PO CONTRAST TECHNIQUE: Noncontrast 5 mm axial images obtained to the abdomen and pelvis. After the administration of intrave nous contrast, 5 mm thick sections acquired from the diaphragms to the symphysis. 5 mm thick coronal and sagittal reformats were acquired. For radiation dose reduction, the following was used: automa annalee exposure control, adjustment of mA and/or kV according to patient size. COMPARISON: None. FINDINGS: ABDOMEN: Lung bases: Normal Heart:Normal. Liver: Normal. Gallbladder: Normal Bile ducts: Normal. Pancreas: Normal. Spleen: Normal. Adrenals: Normal. Kidneys: Large simple appearing right renal cyst measuring 4.4 x 6.3 cm. No intraluminal filling defe cts seen within the contrast opacified portions of the urinary tract. No nephrolithiasis identified. No hydronephrosis. Stomach: Normal. Bowel: Normal. Appendix is normal. Other: No free fluid or air. Abdominal nodes: Normal. Aorta: Normal. IVC: Normal. Ventral wall: Normal. PELVIS: Bladder: Normal. Pelvic nodes: Normal. Inguinal: No hernia. Bones: No vertebral body compression fracture. No suspicious bone lesion IMPRESSION: No urolithiasis. No evidence of urinary obstruction. Large right renal cysts with simple appearance. Elsewhere, no acute abnormality. Normal appearance of the appendix. Reviewed by: Renzo Blum MD on 06/24/2020 3:43 PM PDT Approved by: Renzo Blum MD on 06/24/2020 3:43 PM PDT Station ID: [id number]
== END 2020-06-24 16:05 | disposition home or self-care (01) ==
LOC: ED 13:23
DX: R31.0 Gross hematuria (principal); R53.83 Other fatigue; N28.1 Cyst of kidney, acquired; I10 Essential (primary) hypertension; M54.9 Dorsalgia, unspecified; G89.29 Other chronic pain; F17.200 Nicotine dependence, unspecified, uncomplicated; F15.10 Other stimulant abuse, uncomplicated; F11.10 Opioid abuse, uncomplicated
CPT/HCPCS: 36415; 74178; 80053; 81001; 82550; 85025; 96360; 99284; Q9967; 81003; 87086

== ENCOUNTER 2020-07-14 14:42 | Emergency (ER) | payer MEDICAID ==
--- OUTSIDE RECORDS SUMMARY | 2020-07-14 14:46 | EXTERNAL MEDICAL SUMMARY RPT | Continuity of Care Document ---
:1980 Demographics Phone Unavailable Preferred Language Unknown Marital Status Unknown Holiness Affiliation Unknown Race Unknown Ethnic Group Unknown Author Organization [facility] Address [address] [phone] Phone Allergies Encounters Medications Problems Results
--- OUTSIDE RECORDS SUMMARY | 2020-07-14 14:57 | EXTERNAL MEDICAL SUMMARY RPT | Continuity of Care Document ---
:1980 Demographics Phone Unavailable Preferred Language Unknown Marital Status Unknown Jew Affiliation Unknown Race Unknown Ethnic Group Unknown Author Organization [facility] Address [address] [phone] Phone Allergies Encounters Medications Problems Results
[2020-07-14 15:04] VITALS: BP 126/79
[2020-07-14] MEDS ORDERED: BUFFERED LIDOCAINE 10 ML SYRINGE SUBQ STA (15:35)
--- NOTE | 2020-07-14 15:37 | ED Physician Documentation ---
History of Present Illness - Stated complaint Stated Complaint: BACK PX - Chief complaint Chief Complaint: General - Additonal information Additional information: 40-year-old male presents emergency department for evaluation of a right superi or buttock abscess and cellulitis that began 3 days ago. He does have a history of previous pilonidal cyst status post drainage but this is in a discretely different area. He has had no fevers. No rectal pain or difficulty with defecation. He is marginally home and staying in a camper. He denies drug alcohol use or intravenous drug use. No history of diabetes. He is unable to sit fully on his buttock secondary to the pain. Review of Systems Constitutional: denies: Fever, Chills Eyes: reports: Reviewed and negative Nose: reports: Reviewed and negative Throat: reports: Reviewed and negative Cardiac: reports: Reviewed and negative Respiratory: reports: Reviewed and negative GI: reports: Reviewed and negative Skin: reports: Lesions (Left buttock abscess with associated cellulitis) Musculoskeletal: reports: Reviewed and negative Neurologic: reports: Reviewed and negative PD PAST MEDICAL HISTORY - Past Medical History Past Medical History: Yes Cardiovascular: Hypertension Respiratory: None Neuro: None Endocrine/Autoimmune: None GI: None : None HEENT: None Psych: Other Musculoskeletal: Chronic back pain Derm: None - Past Surgical History Past Surgical History: No - Present Medications Home Medications: Ambulatory Orders Medication Instructions Recorded Confirmed Clindamycin [Cleocin] 450 mg PO TID 7 Days #63 07/14/20 HYDROcod/ACETAM 5/325 [Kendall 5/325] 1 - 2 tablet PO Q6H PRN #8 tablet 07/14/20 - Allergies Allergies/Adverse Reactions: Allergies Allergy/AdvReac Type Severity Reaction Status Date / Time Sulfa (Sulfonamide Allergy Unknown Verified 07/14/20 15:04 Antibiotics) - Social History Does the pt smoke?: Yes Smoking Status: Current every day smoker Does the pt drink ETOH?: Yes Does the pt have substance abuse?: Yes - Immunizations Immunizations are current?: No - POLST Patient has POLST: No PD ED PE EXPANDED - General General: Alert, In Pain - Cardiac Cardiac: Tachy, Radial strong equal, Cap refill < 2 sec - Respiratory Respiratory: Clear to ausultation earle. No: Distress, Labored - Derm Derm: Abscess (left superior buttock 5X7 area of erythema, induratio and centralized fluctuance. no drainage) Results - Vitals Vitals: Vital Signs - 24 hr 07/14/20 14:59 Temperature 36.4 C L Heart Rate 104 H Respiratory 15 Rate Blood Pressure 126/79 O2 Saturation 98 Oxygen O2 Source Room air Procedures - Abscess I&D (location) right buttock Preparation: Betadine, Lidocaine 1% Incision: Incised with scalpel, Purulent drainage, Loculations broken, Irrigated, Packed Other: Pt tolerated well, Dressing applied, Antibiotic prescribed PD MEDICAL DECISION MAKING - ED course Complexity details: re-evaluated patient, d/w patient ED course: 40-year-old male presents the emergency department for evaluation of 3 days right buttock abscess with associated cellulitis. He has a fairly large 5 cm in greatest dimension area of cellulitis with centralized fluctuance consistent with abscess. Abscess was drained at the bedside and well-tolerated by patient. Moderate amount of purulent fluid drained. No culture was obtained but presumptive MRSA given purulence. Patient does have an allergy to sulfa therefore we will start him on clindamycin. Packing was placed. Advised removal in 24 to 48 hours. I am prescribing a short course of short-acting opioid pain medication for this patient. 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 I have discussed that the opioids are for short term therapy only, and will not be refilled from the ED. Departure - Departure Disposition: 01 Home, Self Care Clinical Impression: Cellulitis and abscess of buttock Condition: Stable Record reviewed to determine appropriate education?: Yes Instructions: Drainage Abscess Prescriptions: Clindamycin [Cleocin] 450 mg PO TID 7 Days #63 HYDROcod/ACETAM 5/325 [Kendall 5/325] 1 - 2 tablet PO Q6H PRN #8 tablet PRN Reason: Pain Comments: David rand had a large abscess with cellulitis in your right buttock. This was opened and drained at the bedside. In 24 to 36 hours I would like you to remove the packing from the abscess. It is okay to shower normally until then. If the packing falls out it is okay to leave it out. I would recommend that you change the gauze 2-3 times a day. It is likely that you will have a moderate amount of blood as well as milky drainage on your gauze. Please fill the prescription for the antibiotics this afternoon and begin taking as directed. I have also prescribed a limited amount of hydrocodone for severe pain only. If despite the antibiotics you are not having improved pain, you have fevers increased redness or worries that the infection is worsening please return to t ER for a second look I am prescribing a short course of narcotic pain medication for you. These are potentially dangerous and addictive medications that should be used carefully. These medications may constipate you. Take an ueuk-xvm-eksnofw stool softener (docusate) twice daily with plenty of water while taking these medications. If you go 24 hours without a bowel movement, take rhml-jqd-domzqge miralax, per package instructions. Do not drink or drive while taking these medications. If you received narcotic or sedating medications while in the emergency department, do not drive for 24 hours. Store this medication in a safe, secure place and out of reach of children. It is a violation of federal law to give or sell this medication to another person or to use in a manner other than prescribed. The ED will not refill narcotic prescriptions, including prescriptions lost or stolen. To dispose of unwanted medications: 1. [facility] [address] in [place] has a medication drop box. They accept prescription medications (in pill form) Saturday through Saturday 9:00 a.m. to 5:00 p.m. 2. [facility] [employer] accepts prescription medications (in pill form only) for disposal year round. Call for more information. 3. Contact the [facility] for the next [facility] sponsored prescription drug collection event. , [phone], or [phone]; Note that many narcotic pain relievers also contain Tylenol/acetaminophen. Please ensure that your total dose of acetaminophen from all sources does not exceed 3 g (3000 mg) per day.
[2020-07-14] MEDS ORDERED: CLINDAMYCIN 150 MG CAPSULE PO STA (15:54)
== END 2020-07-14 16:00 | disposition home or self-care (01) ==
LOC: ED 14:42
DX: L02.31 Cutaneous abscess of buttock (principal); L03.317 Cellulitis of buttock; I10 Essential (primary) hypertension; F17.200 Nicotine dependence, unspecified, uncomplicated
CPT/HCPCS: 10061; 99282; 99283; A9270

== ENCOUNTER 2021-01-24 00:58 | Emergency (ER) | payer MEDICAID ==
[2021-01-24 01:05] VITALS: BP 138/121
--- NOTE | 2021-01-24 01:09 | ED Physician Documentation ---
History of Present Illness - Stated complaint Stated Complaint: L SHOULDER PX - Chief complaint Chief Complaint: Ext Problem - History obtained from History obtained from: Patient - History of Present Illness Timing: How many weeks ago (approximately 3 weeks) Pain level now: 4 Improved by: no ameliorating factors Worsened by: palpation, leaning on left elbow - Additonal information Additional information: c/o approximately 3 weeks of gradual onset, episodic left shoulder and left upp er back pain. denies injury. pain has become more persistent and intense with paresthesias radiating down the length of LUE to hand and all fingers, and the pain has also spread proximally to left trapezial ridge. he has been taking ibuprofen with intermittent relief. he tried using a sling but found this worsened the pain Review of Systems Skin: denies: Rash Musculoskeletal: reports: Joint pain. denies: Neck pain, Joint swelling PD PAST MEDICAL HISTORY - Past Medical History Cardiovascular: Hypertension Respiratory: None Neuro: None Endocrine/Autoimmune: None GI: None : None HEENT: None Psych: Other Musculoskeletal: Chronic back pain Derm: None - Past Surgical History Past Surgical History: No - Allergies Allergies/Adverse Reactions: Allergies Allergy/AdvReac Type Severity Reaction Status Date / Time Sulfa (Sulfonamide Allergy Unknown Verified 01/24/21 01:06 Antibiotics) - Social History Does the pt smoke?: Yes Smoking Status: Current every day smoker Does the pt drink ETOH?: Yes Does the pt have substance abuse?: Yes - Immunizations Immunizations are current?: No - POLST Patient has POLST: No PD ED PE NORMAL - Vitals Vital signs reviewed: Yes - General General: Alert and oriented X 3, No acute distress, Well developed/nourished - Neck Neck: No bony TTP - Derm Derm: No rash - Extremities Extremities: No tenderness to palpate, Normal ROM s pain, No edema - Neuro Neuro: No motor deficit, No sensory deficit Results - Vitals Vitals: Oxygen O2 Source Room air - Rads (name of study) left shoulder xrays Radiology: Prelim report reviewed, See rad report PD MEDICAL DECISION MAKING - ED course Complexity details: reviewed results, re-evaluated patient, considered differential, d/w patient ED course: presents with few weeks of atraumatic left shoulder pain. unremarkable plain film xrays. no abnormalities on exam although ROM is limited due to pain (abduction, internal rotation). differential would include bursitis, tendonitis. no findings to suggest zoster, septic arthritis, pathologic fracture. he has been using ibuprofen with some degree of improvement , declines prescription medication in ED. He had worsening of symptoms when he used a sling. He has been resting as well, and this also has not resulted in improvement. Further emergent testing not indicated at this time. I emphasized the importance of pursuing outpatient follow up for reevaluation and consideration of further testing Departure - Departure Disposition: 01 Home, Self Care Clinical Impression: Shoulder pain, left Condition: Good Instructions: ED Shoulder Pain [facility] Follow-Up: Val Ware MD [Provider Admit Priv/Credential] - Discharge Date/Time: 01/24/21 02:37
--- NOTE | 2021-01-24 01:53 | XRAY Report ---
PROCEDURE: Shoulder 3 View LT INDICATIONS: left shoulder pain, atraumatic TECHNIQUE: 3 views of the shoulder were acquired. COMPARISON: None. FINDINGS: Bones: No fractures or dislocations. No suspicious bony lesions. Visualized ribs appear intact. Soft tissues: No suspicious soft tissue calcifications. IMPRESSION: No osseous lesion. If there are persistent symptoms or continued clinical concern for pathology, then repeat plain film radiographs (7-10 days) or advanced imaging (CT, MR, bone scan) should be consider ed for further evaluation. Reviewed by: Magaly Knutson MD, PhD on 01/24/2021 1:51 AM PST Approved by: Magaly Knutson MD, PhD on 01/24/2021 1:51 AM [facility] Station ID: [id number]
== END 2021-01-24 02:37 | disposition home or self-care (01) ==
LOC: ED 00:58
DX: M25.512 Pain in left shoulder (principal); M54.6 Pain in thoracic spine; R20.2 Paresthesia of skin; I10 Essential (primary) hypertension; F17.200 Nicotine dependence, unspecified, uncomplicated
CPT/HCPCS: 99282; 99283

== ENCOUNTER 2021-01-31 08:00 | Outpatient (CLI) | payer MEDICAID ==
[2021-01-31 23:10] LABS: CHLAMYDIA TRACHOMATIS DNA NEGATIVE (NEGATIVE); NEISSERIA GONORRHOEAE DNA NEGATIVE (NEGATIVE)
== END 2021-01-31 23:59 ==
LOC: LAB.N 08:00
PROVIDERS: ATTEND Family Medicine
DX: R30.0 Dysuria (principal)
CPT/HCPCS: 87491; 87591; 87661

== ENCOUNTER 2021-03-18 23:29 | Emergency (ER) | payer MEDICAID ==
[2021-03-18 23:38] VITALS: BP 138/87
[2021-03-18] MEDS ORDERED: KETOROLAC 30 MG/ML VIAL IM STA (23:51)
--- NOTE | 2021-03-18 23:53 | ED Physician Documentation ---
History of Present Illness - Stated complaint Stated Complaint: BLOOD/PX IN R EAR - Chief complaint Chief Complaint: General - History obtained from History obtained from: Patient - Additonal information Additional information: 40-year-old man with allergy to sulfa presents with right ear pain gradual in onset over the course the day today, worsening when he used a Q-tip in his ear. A while later he noticed he was bleeding from the ear. denies fevers, jaw pain. pain is worse with pulling on the ear and a/w swelling sensation to the pinna. denies swimming or recent water in the ear. +decreased hearing, nausea, vertigo. Review of Systems Ears: reports: Loss of hearing, Ear pain, Drainage/discharge PD PAST MEDICAL HISTORY - Past Medical History Cardiovascular: Hypertension Respiratory: None Neuro: None Endocrine/Autoimmune: None GI: None : None HEENT: None Psych: Other Musculoskeletal: Chronic back pain Derm: None - Past Surgical History Past Surgical History: No - Present Medications Home Medications: Ambulatory Orders Medication Instructions Recorded Confirmed Ciproflox/Dexameth Otic Drops 4 drops OT BID #7.5 ml 03/18/21 [Ciprodex Otic Drops] - Allergies Allergies/Adverse Reactions: Allergies Allergy/AdvReac Type Severity Reaction Status Date / Time Sulfa (Sulfonamide Allergy Unknown Verified 01/24/21 01:06 Antibiotics) - Social History Does the pt smoke?: Yes Smoking Status: Current every day smoker Does the pt drink ETOH?: Yes Does the pt have substance abuse?: Yes - Immunizations Immunizations are current?: No - POLST Patient has POLST: No PD ED PE NORMAL - Vitals Vital signs reviewed: Yes - General General: Alert and oriented X 3, No acute distress, Well developed/nourished - HEENT HEENT: Atraumatic, PERRL, EOMI, Other (R ext auditory canal with abrasion and dried blood. ear is swollen and TM unable to be visualized. ) - Neck Neck: Supple, no meningeal sign Results - Vitals Vitals: Vital Signs - 24 hr 03/18/21 23:33 Temperature 35.7 C L Heart Rate 72 Respiratory 16 Rate Blood Pressure 138/87 H O2 Saturation 100 Oxygen O2 Source Room air PD MEDICAL DECISION MAKING - ED course ED course: 40yM p/w abrasion to R ext auditory canal and significant swelling to the ear. antibiotic drops prescribed and ENT referral given. return precautions given. Departure - Departure Disposition: 01 Home, Self Care Clinical Impression: Ear canal abrasion Condition: Good Instructions: ED Abrasion Follow-Up: Kin Grover DO [Physician No Access] - Prescriptions: Ciproflox/Dexameth Otic Drops [Ciprodex Otic Drops] 4 drops OT BID #7.5 ml Comments: You were seen in the ED for abrasion of your external ear canal. Do not use cutips in your ears anymore. Please follow up with an ear nose and throat doctor. return to the ED for any new or worsening symptoms or other concerns.
== END 2021-03-19 00:17 | disposition home or self-care (01) ==
LOC: ED 23:29
DX: S00.411A Abrasion of right ear, initial encounter (principal); X58.XXXA Exposure to other specified factors, initial encounter
CPT/HCPCS: 96372; 99281; 99283

== ENCOUNTER 2021-09-09 17:05 | Emergency (ER) | payer MEDICAID ==
--- NOTE | 2021-09-09 17:19 | ED Physician Documentation ---
PD HPI ABD PAIN - Stated complaint Stated Complaint: MALE - Chief complaint Chief Complaint: Abd Pain - History obtained from History obtained from: Patient - History of Present Illness Timing - onset: How many hours ago (couple), Today Timing - duration: Hours Timing - details: Abrupt onset, Still present Quality: Aching, Sharp, Pain. No: Cramping Location: LLQ Radiation: Left flank. No: Chest Improved by: Laying still. No: Eating, Meds (he took ibuprofen without improvement. Girlfriend gave him "something for UTI" and says got nauseated and vomited after taking it.) Worsened by: Moving, Palpation. No: Eating Associated symptoms: Nausea, Dysuria, Hematuria. No: Fever, Vomiting, Diarrhea, Hematochezia Similar symptoms before: Has not had sx before Recently seen: Not recently seen Review of Systems Constitutional: denies: Fever, Chills Nose: denies: Rhinorrhea / runny nose, Congestion Throat: denies: Sore throat Cardiac: denies: Chest pain / pressure Respiratory: denies: Cough GI: reports: Abdominal Pain, Nausea. denies: Vomiting, Diarrhea : reports: Frequency, Hematuria Skin: denies: Rash Musculoskeletal: denies: Neck pain, Extremity swelling Neurologic: denies: Near syncope PD PAST MEDICAL HISTORY - Past Medical History Cardiovascular: Hypertension Respiratory: None Neuro: None Endocrine/Autoimmune: None GI: None : None HEENT: None Psych: Other Musculoskeletal: Chronic back pain Derm: None - Past Surgical History Past Surgical History: No - Present Medications Home Medications: Ambulatory Orders Medication Instructions Recorded Confirmed Ciproflox/Dexameth Otic Drops 4 drops OT BID #7.5 ml 03/18/21 [Ciprodex Otic Drops] HYDROcod/ACETAM 5/325 [[place] 5/325] 1 ea PO Q6H PRN #15 tablet 09/09/21 Ondansetron Odt [Zofran] 4 mg TL Q6H PRN #10 tablet 09/09/21 cephALEXin [Keflex] 500 mg PO TID #20 cap 09/09/21 - Allergies Allergies/Adverse Reactions: Allergies Allergy/AdvReac Type Severity Reaction Status Date / Time Sulfa (Sulfonamide Allergy Unknown Verified 09/09/21 17:14 Antibiotics) - Social History Does the pt smoke?: Yes Smoking Status: Current every day smoker Does the pt drink ETOH?: Yes Does the pt have substance abuse?: Yes - Immunizations Immunizations are current?: No - POLST Patient has POLST: No PD ED PE NORMAL - Vitals Vital signs reviewed: Yes - General General: Alert and oriented X 3, Well developed/nourished, Other (appears uncomfortable due to back and abd pain on left. ) - Neck Neck: Supple, no meningeal sign, No adenopathy - Cardiac Cardiac: RRR, No murmur - Respiratory Respiratory: Clear bilaterally - Abdomen Abdomen: Normal bowel sounds, Soft, Non distended, No organomegaly, Other (tender LLQ and left mid abd. No rash nor sores. No dysuria per se but did note blood in urine yesterday.) Results - Vitals Vitals: Oxygen O2 Source Room air - Labs Labs: Microbiology 09/09/21 17:11 Urine Culture - Final Urine,Random No growth Laboratory Tests 09/09/21 09/09/21 09/09/21 17:11 17:27 17:27 WBC 7.6 RBC 4.80 Hgb 14.4 Hct 43.5 MCV 90.6 MCH 30.0 MCHC 33.1 RDW 11.9 L Plt Count 197 MPV 9.6 Neut # (Auto) 5.0 Lymph # (Auto) 1.8 [place] # (Auto) 0.6 Eos # (Auto) 0.1 Baso # (Auto) 0.0 Absolute Nucleated RBC 0.00 Nucleated RBC % 0.0 Sodium 135 Potassium 3.3 L Chloride 101 Carbon Dioxide 28 Anion Gap 6.0 BUN 17 Creatinine 1.0 Estimated GFR (MDRD) 82 L Glucose 105 H Calcium 9.3 Total Bilirubin 0.7 AST 22 ALT 17 Alkaline Phosphatase 49 Total Protein 7.1 Albumin 4.1 Globulin 3.0 Albumin/Globulin Ratio 1.4 Lipase 32 Urine Color ORANGE Urine Clarity CLEAR Urine pH 5.5 Ur Specific [place] 1.025 Urine Protein 30 H Urine Glucose (UA) 100 H Urine Ketones NEGATIVE Urine Occult Blood NEGATIVE Urine Nitrite POSITIVE H Urine Bilirubin NEGATIVE Urine Urobilinogen 4 H Ur Leukocyte Esterase TRACE H Urine RBC 0-5 Urine WBC 4-5 Ur Squamous Epith Cells RARE Squamous Urine Bacteria None Seen Ur Microscopic Review INDICATED Urine Culture Comments INDICATED - Rads (name of study) abd/pelvic CT Radiology: Prelim report reviewed, Final report received (no kidney stones. 6x4 cm cyst in kidney of kidney, which I informed patient a bout. No particular followup.), See rad report PD MEDICAL DECISION MAKING - ED course Complexity details: reviewed results (no kidney stones. 6x4 cm cyst in kidney of kidney, which I informed patient a bout. No particular followup. ), re- evaluated patient, considered differential (consider UTI, kidney stone, diverticulitis, colitis. ), d/w patient Departure - Departure Disposition: Home, Self Care Clinical Impression: Back pain Qualifiers: Back pain location: back pain in unspecified location Chronicity: acute Back pain laterality: bilateral Qualified Code(s): M54.9 - Dorsalgia, unspecified Abdominal pain Qualifiers: Abdominal location: lower abdomen, unspecified Qualified Code(s): R10.30 - Lower abdominal pain, unspecified UTI (urinary tract infection) Qualifiers: Urinary tract infection type: acute pyelonephritis Qualified Code(s): N10 - Acute pyelonephritis Condition: Stable Record reviewed to determine appropriate education?: Yes Instructions: ED UTI Pyelonephritis Male Prescriptions: cephALEXin [Keflex] 500 mg PO TID #20 cap HYDROcod/ACETAM 5/325 [[place] 5/325] 1 ea PO Q6H PRN #15 tablet PRN Reason: Pain Ondansetron Odt [Zofran] 4 mg TL Q6H PRN #10 tablet PRN Reason: Nausea / Vomiting Comments: Stay well-hydrated. Use ondansetron if needed for nausea. Tylenol if needed for pain or add hydrocodone/acetaminophen if needed for worse pain. You do have a urinary tract infection I presume most your pain is from pressure in the kidneys as well as at bladder. These pain should improve as the infection is clearing. Will start with cephalexin antibiotic 3 times daily for a week. This may need to be modified based on the urine culture which should result in a couple of days. We will call you if we need to change antibiotics. I transmitted prescriptions up to [facility] in [place]. Return if not improving well over the next 2 to 3 days and sooner if worse. I am prescribing a short course of narcotic pain medication for you. These are potentially dangerous and addictive medications that should be used carefully. These medications may constipate you. Take an bict-ixt-rldjglz stool softener such as docusate twice daily with plenty of water while taking these medications. If you go 24 hours without a bowel movement, take ygad-gnl-[id number] MiraLAX, per package instructions. Do not drink or drive while taking these medications. If you received narcotic or sedating medications while in the emergency department do not drive for 24 hours. Store this medication in a safe, secure place and out of reach of children. It is a violation of federal law to give or sell this medication to another person or to use in a manner other than prescribed. The ED will not refill narcotic prescriptions, including prescriptions lost or stolen. You can dispose of unwanted medications at the [facility]'s office or at several pharmacies such as [facility]. Discharge Date/Time: 09/09/21 19:30
[2021-09-09 17:24] LABS: GLUCOSE, URINE (UA) 100 mg/dL (NEGATIVE); KETONES,URINE (UA) NEGATIVE (NEGATIVE); LEUKOCYTE ESTERASE, URINE TRACE (NEGATIVE); NITRITE,URINE POSITIVE (NEGATIVE); OCCULT BLOOD,URINE NEGATIVE (NEGATIVE); PH,URINE 5.5 PH (5.0-7.5); PROTEIN,URINE 30 mg/dL (NEGATIVE); UROBILINOGEN,URINE 4 E.U./dL (NORMAL)
[2021-09-09 17:36] LABS: BILIRUBIN,URINE NEGATIVE (NEGATIVE); CLARITY,URINE CLEAR (CLEAR); ICTOTEST,URINE NEGATIVE
[2021-09-09 17:37] LABS: BACTERIA,URINE None Seen /HPF (None Seen); RBC,URINE 0-5 /HPF (0-5); SQUAMOUS EPITHELIAL CELL,UR RARE Squamous (<= Few)
[2021-09-09] MEDS ORDERED: SODIUM CHLORIDE 0.9% 1,000 ML IV STA (17:37)
[2021-09-09] MEDS ORDERED: ONDANSETRON 4 MG/2 ML VIAL IVP STA (17:37)
[2021-09-09] MEDS ORDERED: HYDROmorphone 1 MG/ML CARPUJECT IVP STA ×2 (17:37→18:25)
[2021-09-09] MEDS ORDERED: cefTRIAXone 1 GM VIAL IVP STA (17:37)
[2021-09-09] MEDS ORDERED: KETOROLAC 15 MG/ML VIAL IVP STA (17:37)
[2021-09-09 17:41] LABS: BASOPHILS % (AUTO) 0.5 %; EOSINOPHILS # (AUTO) 0.1 10^3/uL (0.0-0.7); EOSINOPHILS % (AUTO) 1.8 %; HCT - HEMATOCRIT 43.5 % (42.0-52.0); HGB - HEMOGLOBIN 14.4 g/dL (14.0-18.0); LYMPHOCYTES # (AUTO) 1.8 10^3/uL (1.5-3.5); LYMPHOCYTES % (AUTO) 23.3 %; MEAN CORPUSCULAR HGB CONC 33.1 g/dL (32.0-36.0); MEAN CORPUSCULAR VOLUME 90.6 fL (80.0-94.0); MEAN PLATELET VOLUME 9.6 fL (7.4-11.4); MONOCYTES # (AUTO) 0.6 10^3/uL (0.0-1.0); MONOCYTES % (AUTO) 8.2 %; NEUTROPHILS % (AUTO) 65.9 %; PLT - PLATELET COUNT 197 10^3/uL (130-450); RED CELL DISTRIBUTION WIDTH 11.9 % (12.0-15.0); WHITE BLOOD COUNT 7.6 x10^3/uL (4.8-10.8)
[2021-09-09 18:00] LABS: ALBUMIN 4.1 g/dL (3.2-5.5); ALBUMIN/GLOBULIN RATIO 1.4 (1.0-2.2); BILIRUBIN,TOTAL 0.7 mg/dL (0.2-1.0); CALCIUM 9.3 mg/dL (8.5-10.3); POTASSIUM 3.3 mmol/L (3.5-5.0); TOTAL PROTEIN 7.1 g/dL (6.7-8.2)
--- NOTE | 2021-09-09 18:09 | CT Report ---
PROCEDURE: Abdomen/Pelvis WO INDICATIONS: left flank and abd pain for 3 days TECHNIQUE: Noncontrast 5 mm thick sections acquired from the diaphragms to the symphysis. 5 mm coronal and sagi ttal reformats were then performed. For radiation dose reduction, the following was used: automated exposure control, adjustment of mA and/or kV according to patient size. COMPARISON: None. FINDINGS: Image quality: Excellent. ABDOMEN: Lung bases: Basal atelectasis. Heart size is normal. Solid organs: Liver and spleen are normal in size. Gallbladder unremarkable Pancreas is normal in contours. No adrenal nodules. Kidneys are normal in size, without hydronephrosis or nephrolithiasis . Large right renal cyst is present measuring 6 x 4.4 cm. No obstructing calculi. Peritoneum and bowel: Unenhanced bowel loops demonstrate normal wall thickness and caliber. No free fluid or air. Small hiatal hernia. Nodes and vessels: No retroperitoneal or mesenteric adenopathy by size criteria. Aorta and inferior vena cava are normal in caliber. Miscellaneous: Small ventral hernia at the umbilicus. PELVIS: Genitourinary: Bladder is underdistended, limiting evaluation. Miscellaneous: No inguinal hernias or adenopathy. Bones: No suspicious bony lesions. No vertebral body compression fractures. IMPRESSION: No hydronephrosis or renal calculi. No acute abdominopelvic pathology. Additional incidental findings above. Reviewed by: Brandon Pennington MD on 09/09/2021 6:08 PM PDT Approved by: Brandon Pennington MD on 09/09/2021 6:08 PM PDT Station ID: [id number]
[2021-09-09] MEDS ORDERED: ONDANSETRON ODT 4 MG Prepack 2 TL PRN (18:25)
[2021-09-09] MEDS ORDERED: HYDROcod/ACET 5/325 Prepack 4 PO STA (18:25)
[2021-09-09 19:37] VITALS: BP 150/80
== END 2021-09-09 19:30 | disposition home or self-care (01) ==
LOC: ED 17:05
DX: M54.9 Dorsalgia, unspecified (principal); R10.30 Lower abdominal pain, unspecified; N10 Acute pyelonephritis; N28.1 Cyst of kidney, acquired
CPT/HCPCS: 36415; 74176; 80053; 81001; 83690; 85025; 87086; 96374; 96375; 99283; 99285; J1170; 81003

== ENCOUNTER 2021-12-05 20:46 | Emergency (ER) | payer MEDICAID ==
[2021-12-05] MEDS ORDERED: CHERRY SYRUP 10 ML UDC PO ONE (21:38)
[2021-12-05] MEDS ORDERED: CLINDAMYCIN 150 MG CAPSULE PO STA (21:38)
[2021-12-05] MEDS ORDERED: HYDROcod/ACET 5/325 Prepack 4 PO STA (21:38)
[2021-12-05] MEDS ORDERED: DEXAMETHASONE 10 MG/ML VIAL PO STA (21:38)
--- NOTE | 2021-12-05 21:43 | ED Physician Documentation ---
PD HPI WOUND RECHECK - Stated complaint Stated Complaint: COUGHING UP BLOOD/ABD PX - Chief complaint Chief Complaint: Wound - Histroy obtained from History obtained from: Patient - Additional information Additional information: 41-year-old gentleman presents with about 4 days of sore throat and had a panic attack tonight with coughing and some sputum with blood-tinged to it. He also has some lesions on the abdominal wall. That are painful. Review of Systems Constitutional: denies: Fever, Chills Cardiac: denies: Chest pain / pressure, Palpitations Respiratory: reports: Dyspnea, Cough PD PAST MEDICAL HISTORY - Past Medical History Past Medical History: Yes Cardiovascular: Hypertension Respiratory: None Neuro: None Endocrine/Autoimmune: None GI: Crohn's disease : None HEENT: None Psych: Other Musculoskeletal: Chronic back pain Derm: None - Past Surgical History Past Surgical History: No - Present Medications Home Medications: Ambulatory Orders Medication Instructions Recorded Confirmed Acyclovir 200 mg PO DAILY 12/05/21 12/05/21 Acyclovir 400 mg PO TID PRN #60 tablet 12/05/21 Chlorhexidine Gluconate [Hibiclens] 10 ml TP DAILY #236 ml 12/05/21 HYDROcod/ACETAM 5/325 [[place] 5/325] 1 - 2 tab PO Q6H PRN #10 tablet 12/05/21 clindamycin HCL [Cleocin HCl] 300 mg PO QID #28 cap 12/05/21 - Allergies Allergies/Adverse Reactions: Allergies Allergy/AdvReac Type Severity Reaction Status Date / Time Sulfa (Sulfonamide Allergy Unknown Verified 12/05/21 20:50 Antibiotics) - Social History Does the pt smoke?: Yes Smoking Status: Current every day smoker Does the pt drink ETOH?: Yes Does the pt have substance abuse?: Yes - Immunizations Immunizations are current?: No - POLST Patient has POLST: No PD ED PE NORMAL - Vitals Vital signs reviewed: Yes - General General: Alert and oriented X 3, No acute distress - HEENT HEENT: PERRL, EOMI, Other (Very swollen tonsils without exudates) - Neck Neck: Supple, no meningeal sign, No bony TTP - Cardiac Cardiac: RRR, No murmur - Respiratory Respiratory: No respiratory distress, Clear bilaterally - Abdomen Abdomen: Non tender - Derm Derm: Other (There are some lesions on the left abdominal wall consistent with staph infection with mild surrounding cellulitis and 1 is sent for culture.) - Neuro Neuro: Alert and oriented X 3, Normal speech Results - Vitals Vitals: Vital Signs - 24 hr 12/05/21 20:50 Temperature 36.5 C Heart Rate 100 Respiratory 16 Rate Blood Pressure 168/90 H O2 Saturation 100 Oxygen O2 Source Room air PD MEDICAL DECISION MAKING - ED course ED course: 41-year-old gentleman with swollen tonsils and also a skin infection. COVID testing offered and declined. He also wants a refill of his acyclovir. Departure - Departure Disposition: Home, Self Care Clinical Impression: Staph skin infection Condition: Good Record reviewed to determine appropriate education?: Yes Instructions: ED Staph Infec Abx Tx Only Prescriptions: Acyclovir 400 mg PO TID PRN #60 tablet PRN Reason: hsv infection clindamycin HCL [Cleocin HCl] 300 mg PO QID #28 cap Chlorhexidine Gluconate [Hibiclens] 10 ml TP DAILY #236 ml HYDROcod/ACETAM 5/325 [[place] 5/325] 1 - 2 tab PO Q6H PRN #10 tablet PRN Reason: Pain Comments: I sent your prescriptions electronically to [facility] in [place]. We are performing a wound culture, the results should be done in 48-72 hours. If antibiotic change is necessary we will call you. Return if worse in the meantime, especially if you develop increased pain, fevers, cannot keep down the medication. Otherwise follow-up with your physician in approximately 2-3 days.
[2021-12-05 21:53] VITALS: BP 148/86
== END 2021-12-05 21:53 | disposition home or self-care (01) ==
LOC: ED 20:46
DX: L08.89 Other specified local infections of the skin and subcutaneous tissue (principal); L03.311 Cellulitis of abdominal wall; B95.8 Unspecified staphylococcus as the cause of diseases classified elsewhere; J03.90 Acute tonsillitis, unspecified; F17.200 Nicotine dependence, unspecified, uncomplicated; K50.90 Crohn's disease, unspecified, without complications; I10 Essential (primary) hypertension
CPT/HCPCS: 87070; 87205; 99284; A9270

== ENCOUNTER 2023-07-29 22:58 | Emergency (ER) | payer MEDICAID ==
[2023-07-29 23:12] VITALS: O2SAT 100
[2023-07-29 23:55] LABS: BILIRUBIN,URINE NEGATIVE (NEGATIVE); GLUCOSE, URINE (UA) NEGATIVE (NEGATIVE); KETONES,URINE (UA) NEGATIVE (NEGATIVE); LEUKOCYTE ESTERASE, URINE NEGATIVE (NEGATIVE); NITRITE,URINE NEGATIVE (NEGATIVE); OCCULT BLOOD,URINE NEGATIVE (NEGATIVE); PH,URINE 7.5 PH (5.0-7.5); PROTEIN,URINE NEGATIVE (NEGATIVE); UROBILINOGEN,URINE 0.2 (NORMAL) E.U./dL (NORMAL)
[2023-07-29 23:56] LABS: CLARITY,URINE CLEAR (CLEAR)
--- NOTE | 2023-07-30 01:22 | CT Report ---
PROCEDURE: Chest WO INDICATIONS: cough, back pain TECHNIQUE: A CT scan of the chest was performed. Intravenous contrast media was not administered. Images were re corded and evaluated at appropriate window settings. Reformats: axial MIP of the chest, coronal and s agittal. For radiation dose reduction, the following was used: automated exposure control, adjustment of mA and/or kV according to patient size. COMPARISON: Chest radiograph dated 11/05/2018. FINDINGS: Image quality: Diagnostic. Chest wall and lower neck: No thyroid nodule which requires sonographic follow up. No axillary or sup raclavicular adenopathy by size. Lungs and pleura: No consolidation. No pleural effusions. No pneumothorax. No suspicious pulmonary n odules which require follow up. Mild upper lobe predominant paraseptal pulmonary emphysematous barros es. Mediastinum: Heart size is normal. No pericardial effusion. No large vessel abnormality. No mediastin al adenopathy by size criteria. Bones: No aggressive osseous abnormality. Upper Abdomen: Unremarkable. IMPRESSION: CT chest without acute cardiopulmonary abnormalities. No focal consolidation. Mild upper lobe predominant paraseptal pulmonary emphysematous changes. Reviewed by: Gunnar Cordova MD on 07/30/2023 1:20 AM PDT Approved by: Gunnar Cordova MD on 07/30/2023 1:20 AM PDT Station ID: [id number]
--- NOTE | 2023-07-30 01:26 | CT Report ---
PROCEDURE: Abdomen/Pelvis WO INDICATIONS: R CVA/flank pain TECHNIQUE: A CT scan of the abdomen and pelvis was performed without the use of intravenous contrast. Images we re recorded and evaluated at appropriate window settings. Reformats: coronal and sagittal. For radiat ion dose reduction, the following was used: automated exposure control, adjustment of mA and/or kV ac cording to patient size. COMPARISON: None. FINDINGS: Image quality: Diagnostic. Lower chest: Unremarkable. Liver: No contour-deforming mass. Gallbladder: No radiopaque stones or wall thickening. Biliary tree: No intrahepatic or extrahepatic dilation, accounting for age. Spleen: No splenomegaly. Pancreas: No pancreatic ductal dilation. Adrenals: No adrenal nodule. Kidneys and ureters: No hydronephrosis. No contour-deforming mass. There is a 5.7 x 4.5 cm simple cys t in the right kidney. No renal stones identified. No ureteral stones seen. Bilateral ureters are nor mal in course and caliber. No perinephric or periureteral stranding. Stomach, bowel and peritoneum: No gastric or small bowel dilation. No abnormal wall thickening. No pa thologic free fluid. Normal appendix. Lymph nodes: No central or retroperitoneal adenopathy. Vessels: No infrarenal aortic aneurysm. Reproductive organs: Unremarkable. Bladder: Bladder wall thickness is normal, accounting for underdistention. No calcified bladder stone s. Pelvic lymph nodes: No adenopathy by size criteria. Bones: No aggressive osseous abnormality. Other: No significant ventral or inguinal hernia. IMPRESSION: No hydronephrosis or obstructing renal stone. Normal appendix. No acute abnormalities identified in the abdomen or pelvis. Reviewed by: Gunnar Cordova MD on 07/30/2023 1:25 AM PDT Approved by: Gunnar Cordova MD on 07/30/2023 1:25 AM PDT Station ID: [id number]
--- NOTE | 2023-07-30 02:07 | ED Physician Documentation ---
History of Present Illness - Stated complaint Stated Complaint: BACK PX - Chief complaint Chief Complaint: Back Pain - History obtained from History obtained from: Patient - Additonal information Additional information: The patient comes to the emergency complaint of right flank pain. He states that hurts with certain positions but also just hurts in general. Pain started a couple of weeks ago. No fevers or chills. No dysuria. No abdominal pain. The patient has also had a persistent cough over the last couple of weeks and is concerned that he may have pneumonia. PD PAST MEDICAL HISTORY - Past Medical History Past Medical History: Yes Cardiovascular: Hypertension Respiratory: None Neuro: None Endocrine/Autoimmune: None GI: Crohn's disease : None HEENT: None Psych: Other Musculoskeletal: Chronic back pain Derm: None - Past Surgical History Past Surgical History: No - Present Medications Home Medications: Ambulatory Orders Medication Instructions Recorded Confirmed Acyclovir 200 mg PO DAILY 12/05/21 12/05/21 Acyclovir 400 mg PO TID PRN #60 tablet 12/05/21 - Allergies Allergies/Adverse Reactions: Allergies Allergy/AdvReac Type Severity Reaction Status Date / Time Sulfa (Sulfonamide Allergy Unknown Verified 07/29/23 23:06 Antibiotics) - Social History Does the pt smoke?: Yes Smoking Status: Current every day smoker Does the pt drink ETOH?: Yes Does the pt have substance abuse?: Yes - Immunizations Immunizations are current?: No - POLST Patient has POLST: No PD ED PE NORMAL - Vitals Vital signs reviewed: Yes - General General: Alert and oriented X 3, No acute distress, Well developed/nourished - HEENT HEENT: Atraumatic, PERRL, EOMI, Moist mucous membranes - Neck Neck: Supple, no meningeal sign - Cardiac Cardiac: RRR, No murmur - Respiratory Respiratory: No respiratory distress, Clear bilaterally - Abdomen Abdomen: Soft, Non distended, Other (Right flank tenderness, extending into right back around the same level. No rebound or guarding.) - Back Back: No spinal TTP, Other (Muscular tenderness over right low back around the L1-3 level. No left-sided findings.) - Derm Derm: Normal color, Warm and dry, No rash - Extremities Extremities: No deformity, No edema, No calf tenderness / cord - Neuro Neuro: Alert and oriented X 3 - Psych Psych: Normal mood, Normal affect Results - Vitals Vitals: Oxygen O2 Source Room air - Labs Labs: Laboratory Tests 07/29/23 23:50 Urine Color YELLOW Urine Clarity CLEAR Urine pH 7.5 Ur Specific [place] 1.020 Urine Protein NEGATIVE Urine Glucose (UA) NEGATIVE Urine Ketones NEGATIVE Urine Occult Blood NEGATIVE Urine Nitrite NEGATIVE Urine Bilirubin NEGATIVE Urine Urobilinogen 0.2 (NORMAL) Ur Leukocyte Esterase NEGATIVE Ur Microscopic Review NOT INDICATED Urine Culture Comments NOT INDICATED - Rads (name of study) CT abdomen and pelvis no contrast Relevant Findings:: Final report received, See rad report (No acute findings. No stone.) PD Medical Decision Making - ED course Complexity details: reviewed results, re-evaluated patient, considered differential, d/w patient ED course: The patient was worked up with urinalysis, as well as CTs of the chest abdomen and pelvis. Urinalysis was completely normal. The CT of the chest showed some emphysematous changes in the upper lung trevino, but no other acute process. Abdominal CT showed no stone or other acute findings. I discussed with the patient that I suspect a musculoskeletal/mechanical source of the pain as we have not found evidence of anything else. We have discussed symptomatic management at home and the need for follow-up. The patient has declined any medication here in the ED. Departure - Departure Disposition: 01 Home, Self Care Clinical Impression: Low back strain Qualifiers: Encounter type: initial encounter Qualified Code(s): S39.012A - Strain of muscle, fascia and tendon of lower back, initial encounter Condition: Stable Instructions: ED Sprain Strain Lumbar Comments: Your urinalysis and CT scan look good. There is no evidence of a kidney stone or any infectious process going on. You do have the beginnings of emphysema/COPD and your upper lung trevino and it is important that you consider getting help with smoking to prevent progression of lung disease. Please follow-up with your primary doctor to discuss a plan to help with this. You may take ibuprofen and/or Tylenol as needed for the pain in your back. You may also use heat, ice, massage, and stretching to help as well. Please follow-up with your primary doctor if you do not feel better after the next couple of weeks. Discharge Date/Time: 07/30/23 02:16
[2023-07-30 02:24] VITALS: BP 141/74
== END 2023-07-30 02:16 | disposition home or self-care (01) ==
LOC: ED 22:58
DX: S39.012A Strain of muscle, fascia and tendon of lower back, initial encounter (principal); X58.XXXA Exposure to other specified factors, initial encounter; J43.9 Emphysema, unspecified; F17.200 Nicotine dependence, unspecified, uncomplicated
CPT/HCPCS: 81001; 81003; 87086; 99283; 99284

== ENCOUNTER 2023-08-18 06:22 | Emergency (ER) | payer SELFPAY ==
--- NOTE | 2023-08-18 07:10 | ED Physician Documentation ---
PD HPI HEENT - Stated complaint Stated Complaint: THROAT SWELLING - Chief complaint Chief Complaint: Heent - History obtained from History obtained from: Patient - History of Present Illness Timing - onset: Yesterday Timing - details: Abrupt onset, Still present PD PAST MEDICAL HISTORY - Past Medical History Past Medical History: Yes Cardiovascular: Hypertension Respiratory: None Neuro: None Endocrine/Autoimmune: None GI: Crohn's disease : None HEENT: None Psych: Other Musculoskeletal: Chronic back pain Derm: None - Past Surgical History Past Surgical History: No - Present Medications Home Medications: Ambulatory Orders Medication Instructions Recorded Confirmed Acyclovir 200 mg PO DAILY 12/05/21 12/05/21 Acyclovir 400 mg PO TID PRN #60 tablet 12/05/21 HYDROcod/ACETAM 5/325 [[place] 5/325] 1 ea PO Q6H PRN #14 tablet 08/18/23 cephALEXin [Keflex] 1,000 mg PO TID 5 Days #30 cap 08/18/23 dexAMETHasone [Decadron] 4 mg PO DAILY #5 tablet 08/18/23 - Allergies Allergies/Adverse Reactions: Allergies Allergy/AdvReac Type Severity Reaction Status Date / Time Sulfa (Sulfonamide Allergy Unknown Verified 08/18/23 06:28 Antibiotics) - Social History Does the pt smoke?: Yes Smoking Status: Current every day smoker Does the pt drink ETOH?: Yes Does the pt have substance abuse?: Yes Substance Use and Type: Other - Immunizations Immunizations are current?: No - POLST Patient has POLST: No PD ED PE NORMAL - HEENT HEENT: No: Pharynx benign (left tonsil with redness and edema, with some medial peritonsillar edema. Voice hoarse without strdidor.), Dentition benign - Neck Neck: Supple, no meningeal sign. No: No adenopathy (left tender anterior adenopathy.) - Cardiac Cardiac: RRR, No murmur - Respiratory Respiratory: Clear bilaterally - Abdomen Abdomen: Soft, Non tender - Back Back: No CVA TTP - Derm Derm: Normal color, Warm and dry Results - Vitals Vitals: Vital Signs - 24 hr 08/18/23 08/18/23 08/18/23 06:29 06:52 08:27 Temperature 36 C L 36.5 C Heart Rate 81 82 74 Respiratory 16 14 Rate Blood Pressure 148/80 H 144/98 H O2 Saturation 100 99 08/18/23 10:14 Temperature 36.1 C L Heart Rate 79 Respiratory 18 Rate Blood Pressure 144/89 H O2 Saturation 97 Oxygen O2 Source Room air - Labs Labs: Laboratory Tests 08/18/23 07:20 Group A Strep Rapid Negative PD Medical Decision Making - ED course Complexity details: re-evaluated patient (he was watched from 1-2 hours after the meds for swelling. He states it was feeling improved being able to swallow less painfully and less ditortedvoioce.), considered differential, d/w patient Departure - Departure Disposition: Home, Self Care Clinical Impression: Peritonsillar cellulitis Condition: Stable Record reviewed to determine appropriate education?: Yes Instructions: ED Peritonsillar Infec Abx No I andD Follow-Up: [facility] [Provider Group] Prescriptions: dexAMETHasone [Decadron] 4 mg PO DAILY #5 tablet cephALEXin [Keflex] 1,000 mg PO TID 5 Days #30 cap HYDROcod/ACETAM 5/325 [[place] 5/325] 1 ea PO Q6H PRN #14 tablet PRN Reason: Pain Comments: This appears as an infection around the tonsil. Your rapid strep test is negative but it still looks bacterial and will treat it with cephalexin antibiotic over the next 5 to 6 days. Also steroid anti-inflammatory for the next 5 days. I would anticipate improvement over the next day or 2 and resolved by 3 to 5 days. Recheck if not steadily improving through the day today and into tomorrow and return if worsening. If not fully resolved over the next several days, follow-up with your primary care or walk-in or the ER or you could follow-up with the ear nose and throat s pecialist in [place]. I sent your prescription to your preferred pharmacy. Stay well-hydrated. Soft foods and liquids. Add Tylenol or ibuprofen if needed for pains or hydrocodone if needed for worse pain. I am prescribing a short course of narcotic pain medication for you. These are potentially dangerous and addictive medications that should be used carefully. These medications may constipate you. Take an [id number] stool softener such as docusate twice daily with plenty of water while taking these medications. If you go 24 hours without a bowel movement, take [id number] MiraLAX, per package instructions. Do not drink or drive while taking these medications. If you received narcotic or sedating medications while in the emergency department do not drive for 24 hours. Store this medication in a safe, secure place and out of reach of children. It is a violation of federal law to give or sell this medication to another person or to use in a manner other than prescribed. The ED will not refill narcotic prescriptions, including prescriptions lost or stolen. You can dispose of unwanted medications at the [facility]'s office or at several pharmacies such as [facility]. Forms: PCP List Discharge Date/Time: 08/18/23 10:15
[2023-08-18 07:40] LABS: RAPID STREP SCREEN Negative (Negative)
[2023-08-18] MEDS: cefTRIAXone 1 GM VIAL IVP STA (08:06)
[2023-08-18] MEDS: SODIUM CHLORIDE 0.9% 500 ML IV STA (08:06)
[2023-08-18] MEDS: KETOROLAC 15 MG/ML VIAL IVP STA (08:06)
[2023-08-18] MEDS: DEXAMETHASONE 10 MG/ML VIAL IVP STA (08:06)
[2023-08-18 10:16] VITALS: BP 144/89; O2SAT 97
== END 2023-08-18 10:15 | disposition home or self-care (01) ==
LOC: ED 06:22
DX: J36 Peritonsillar abscess (principal); F17.200 Nicotine dependence, unspecified, uncomplicated
CPT/HCPCS: 87070; 87077; 87430; 96374; 99283